=== PATIENT | female | born 1995 | race Caucasian/White ===

== ENCOUNTER 2018-04-02 22:08 | Emergency (ER) | payer OTHER ==
[~2018-04-02] VITALS: Ht 162.6 cm; Wt 49.0 kg
[2018-04-02 22:12] VITALS: BP 107/73
== END 2018-04-03 00:02 | disposition admitted as inpatient to this hospital (09) ==
LOC: ERH 22:08
DX: R10.2 Pelvic and perineal pain (principal); F41.9 Anxiety disorder, unspecified
CPT/HCPCS: 93005; 93010; 99281